=== PATIENT | female | born 1995 | race Caucasian/White ===

== ENCOUNTER 2016-09-27 02:59 | Emergency (ER) | payer OTHER ==
[2016-09-27 05:34] VITALS: BP 118/79
== END 2016-09-27 05:34 | disposition home or self-care (01) ==
LOC: ED 02:59
DX: S92.351A Displaced fracture of fifth metatarsal bone, right foot, initial encounter for closed fracture (principal); W22.8XXA Striking against or struck by other objects, initial encounter; Y93.89 Activity, other specified; Y92.89 Other specified places as the place of occurrence of the external cause; Y99.8 Other external cause status
CPT/HCPCS: Q0092

== ENCOUNTER 2017-06-21 04:06 | Emergency (ER) | payer OTHER ==
[~2017-06-21] VITALS: Ht 157.5 cm; Wt 59.0 kg
[2017-06-21 04:20] VITALS: BP 126/58
== END 2017-06-21 04:20 | disposition other institution (70) ==
LOC: ED 04:06
DX: Z02.89 Encounter for other administrative examinations (principal)